=== PATIENT | male | born 1950 | race Two or more races ===

== ENCOUNTER 2024-10-08 08:16 | Day surgery (SDC) | payer OTHER ==
[~2024-10-08] VITALS: Ht 172.7 cm; Wt 79.4 kg
[~2024-10-08 08:16] MED LIST: BACL10TA PO; CARV6.2551 PO; GABA-339 PO; HYDR-4798 PO; LISI40TA16 PO; NIFE1TAB31 PO; OXYB5SOL PO
[2024-10-08 10:00] VITALS: TEMP 98.6
--- NOTE | 2024-10-08 11:22 | DVHHP2 ---
GI H&P Pre-Op Assessment Date: 10/08/24 Chief complaint: melena and nausea HPI: per clinic note Past medical history: per clinic note Past surgical history: per clinic note Family history: per clinic note Physical exam: General: NAD, AAOX3 HEENT: PERRL, no scleral icterus, normal hearing, gums without lesions or bleeding, oropharynx clear without erythema or exudate. Neck: Supple without enlargement of the thyroid, or lymphadenopathy. Chest: Normal size and shape, no tenderness, lung leslie clear to auscultation and percussion, nonlabored breathing. Heart: RRR, no murmur Abdomen: non-distended, no tenderness to palpation, +BS, no hepatosplenomegaly Extremities: no edema Neurological: CN II-XII intact, sensation intact in all extremities, 5+ strength in all extremities Skin: No rashes, No jaundice Assessment: - melena and nausea Plan: - EGD - Risks (bleeding, infection, perforation, reaction to sedation medications and cardiopulmonary arrest) and benefit of the procedure were explained to patient. Patient agrees to undergo the procedure. JE MCNEILL MD Oct 08, 2024 11:22
--- NOTE | 2024-10-08 12:03 | DVHOP2 ---
Operative Report DATE OF OPERATION: 10/08/24 PROCEDURE: Upper Endoscopy. PREOPERATIVE INDICATION: The patient is a 74 -year-old male undergoing endoscopy for melena and nausea. POSTOPERATIVE DIAGNOSES: 1. Duodenitis in the bulb. 2. Gastritis. PROCEDURE PERFORMED BY: Channing Lazo SCOPE: Olympus videoendoscope. ASA CLASS: 3 PREOPERATIVE MEDICATIONS: MAC with Dr Hinkle PROCEDURE IN DETAIL: After obtaining an informed consent, the patient was placed on left lateral decubitus position. The patient was then sedated with the above medications. A bite block was placed between his teeth. The endoscope was then passed through the oropharynx, into the esophagus, and through the stomach and pylorus up to the second and third part of the duodenum. There was duodenitis in the bulb. There was gastritis. Gastric biopsies were obtained. The GE junction was normal appearance at 40 cm. The esophagus was normal in appearance. The endoscope was then withdrawn. The patient tolerated the procedure well without difficulty. COMPLICATIONS : None SPECIMENS: Gastric biopsies DISPOSITION: D/C to home PLAN: 1. Await for biopsy result CHANNING LAZO MD Oct 08, 2024 12:03
--- NOTE | 2024-10-08 12:03 | DVHDS2 ---
Physician Discharge Progress N Final Diagnosis: Duodenitis, gastritis Operations or Procedures: Operations or Procedures EGD with biopsy Condition on Discharge: Good Disposition: Home Discharge Instructions: Diet: Regular Activity: No Restrictions, As Tolerated Medications: Resume previous home medications Follow Up Care: Discharge Statement: "Patient was advised to return to the ER or call 911 if any headaches, dizziness, shortness of breath, chest pain, abdominal pain, bleeding, fevers, or worsening of medical condition. Patient was counseled about treatment plan, medications, possible side effects, patientverbalized understanding. All questions were answered to the best of my ability. This discharge took greater then 30 minutes in planning, reviewing documentation, counseling the patient, and discussing with other team members." JE MCNEILL MD Oct 08, 2024 12:03
[2024-10-08 12:08] VITALS: PULSE 90; RESP 12
[2024-10-08] MEDS ORDERED: PROPOFOL 10 MG/ML 20 ML IV ONE (12:32)
[2024-10-08] MEDS ORDERED: DexAMETHasone SOD PHOS 10MG/1ML VIAL INJ ONE (12:32)
[2024-10-08 12:35] VITALS: BP 145/84; PULSE 81; RESP 14; O2SAT 99
[2024-10-08] MEDS ORDERED: LIDOCAINE VISCOUS 2% 15ML UD ONE (12:35)
[2024-10-08] MEDS ORDERED: MIDAZOLAM HCL 2MG/2ML 2ml VIAL (1mg/ml) ONE (12:59)
[2024-10-08] MEDS ORDERED: fentaNYL CITRATE 100 MCG/2 ML VL ONE (12:59)
== END 2024-10-08 12:52 | disposition home or self-care (01) ==
LOC: GI 08:16
PROVIDERS: ATTEND Internal Medicine Gastroenterology
DX: K92.1 Melena (principal); K29.50 Unspecified chronic gastritis without bleeding; R11.0 Nausea; K29.80 Duodenitis without bleeding; I10 Essential (primary) hypertension; I25.10 Atherosclerotic heart disease of native coronary artery without angina pectoris; E78.5 Hyperlipidemia, unspecified; M19.90 Unspecified osteoarthritis, unspecified site; I65.29 Occlusion and stenosis of unspecified carotid artery; Z79.899 Other long term (current) drug therapy; Z98.890 Other specified postprocedural states
CPT/HCPCS: 43239; 88305; 88312; 88342; J1100; J2250; J2704; J3010; J7030